=== PATIENT | female | born 1975 | race Caucasian/White ===

== ENCOUNTER 2016-11-21 13:02 | Observation (INO) | payer MEDICARE ==
[~2016-11-21] VITALS: Ht 154.9 cm; Wt 59.4 kg
[2016-11-21] MEDS ORDERED: LOSA100T14 PO (13:14)
[2016-11-21] MEDS ORDERED: FURO20TA4 PO (13:14)
[2016-11-21] MEDS ORDERED: ACETAMINOPHEN 325MG TABLET PO ONE (14:45)
[2016-11-21 15:17] LABS: BASOPHILS % 0.7 % (0.0-2.0); EOSINOPHILS % 1.4 % (0.0-5.0); LYMPHOCYTES % 18.5 % (20.0-50.0); MEAN CORPUSCULAR HEMOGLOBIN 17.4 pg (28.0-32.0); MEAN CORPUSCULAR VOLUME 56.9 fL (81.0-99.0); MEAN PLATELET VOLUME 8.9 fl (7.4-10.4); MONOCYTES % 8.9 % (2.0-8.0); NEUTROPHILS % 70.5 % (40.0-76.0); PLATELET 374 x1000/uL (130-400); RED BLOOD CELL COUNT 3.49 mill/uL (4.2-5.4); RED CELL DISTRIBUTION WIDTH 19.7 % (11.6-14.6)
[2016-11-21 15:29] LABS: HEMATOCRIT. 19.9 % (36.0-48.0); HEMOGLOBIN. 6.1 g/dL (12.0-16.0)
[2016-11-21 16:45] LABS: PLATELET ESTIMATE NORMAL
[2016-11-21] MEDS ORDERED: ONDANSETRON HCL 4MG/2ML VIAL IV PRN (18:00)
[2016-11-21] MEDS ORDERED: CLONIDINE 0.1MG TABLET PO PRN (18:00)
[2016-11-21] MEDS ORDERED: DOCUSATE SODIUM 100MG CAPSULE PO PRN (18:00)
[2016-11-21] MEDS ORDERED: ACETAMINOPHEN 325MG TABLET PO PRN (18:00)
[2016-11-21 18:41] LABS: TOTAL IRON BINDING CAPACITY 420 ug/dL (250-450)
[2016-11-21 19:15] VITALS: BP 165/88
[2016-11-21 20:00] VITALS: BP 165/85
[2016-11-21] MEDS ORDERED: SODIUM CHLORIDE 0.9% 1,000 ML IV SCH (21:30)
[2016-11-22] VITALS (11 sets, daily range): BP systolic 109–166; BP diastolic 65–89
[2016-11-22 09:45] LABS: BASOPHILS % 0.6 % (0.0-2.0); EOSINOPHILS % 1.5 % (0.0-5.0); HEMOGLOBIN. 8.5 g/dL (12.0-16.0); LYMPHOCYTES % 17.7 % (20.0-50.0); MEAN CORPUSCULAR VOLUME 63.4 fL (81.0-99.0); MEAN PLATELET VOLUME 8.7 fl (7.4-10.4); NEUTROPHILS % 70.2 % (40.0-76.0); PLATELET 349 x1000/uL (130-400); RED BLOOD CELL COUNT 4.26 mill/uL (4.2-5.4)
[2016-11-22 10:05] LABS: CARBON DIOXIDE 25 mEq/L (21-32); CHLORIDE 109 mEq/L (98-107)
== END 2016-11-22 12:35 | disposition home or self-care (01) ==
LOC: ER 13:02 → ENRESERV 18:35 → INTOOBSV 21:25 → 6EST 21:25
PROVIDERS: ADMIT Hospitalist; ATTEND Hospitalist
DX: D62 Acute posthemorrhagic anemia (principal); I12.9 Hypertensive chronic kidney disease with stage 1 through stage 4 chronic kidney disease, or unspecified chronic kidney disease; N18.9 Chronic kidney disease, unspecified; N92.0 Excessive and frequent menstruation with regular cycle
CPT/HCPCS: 36415; 36430; 80048; 80053; 83540; 83550; 85025; 86850; 86900; 86901; 86920; 93970; 96360; 96361; 99285; G0378; J7030; J7040; P9016